=== PATIENT | male | born 1990 | race Two or more races ===

== ENCOUNTER 2022-03-26 11:38 | Emergency (ER) | payer OTHER ==
[~2022-03-26] VITALS: Ht 170.2 cm; Wt 98.0 kg
[2022-03-26] MEDS ORDERED: ZITHROMAX500 MG PO (16:29)
[2022-03-26] MEDS ORDERED: MUCINEX DM ER1 EAC1 PO (16:29)
[2022-03-26] MEDS ORDERED: DICLOFENAC POTA50 MG PO (16:29)
[2022-03-26] MEDS ORDERED: PROMETH-CODEIN 65 ML PO (16:29)
[2022-03-26] MEDS ORDERED: ORPHENADRINE C100 MG PO (16:29)
== END 2022-03-26 16:37 ==
LOC: ER 11:38
DX: J06.9 Acute upper respiratory infection, unspecified (principal); R05.9 Cough, unspecified; M62.838 Other muscle spasm